=== PATIENT | male | born 1940 | race African-American/Black ===

== ENCOUNTER 2018-10-22 14:28 | Inpatient (IN) | payer OTHER ==
[~2018-10-22] VITALS: Ht 180.3 cm; Wt 115.2 kg
[2018-10-22] MEDS ORDERED: SODIUM CHLORIDE 0.9% 1,000 ML IV ONE (14:44)
[2018-10-22 15:23] LABS: BG BASE EXCESS -7.8 mmol/L (-2.0-2.0); BG CARBOXYHEMOGLOBIN 0.4 % (0.5-1.5); BG DEOXYHEMOGLOBIN 3.3 % (0.0-5.0); BG FRACTION INSPIRED OXYGEN 32; BG HCO3 ACT 17.6 mmol/L (22.0-26.0); BG METHEMOGLOBIN 0.2 % (0.0-1.5); BG OXYGEN SATURATION 96.7 % (92.0-98.5); BG OXYHEMOGLOBIN 96.1 % (94.0-97.0); BG PCO2 35.7 mmHg (35.0-45.0); BG PH 7.311 (7.350-7.450); BG PO2 98.4 mmHg (75.0-100.0); BG SAMPLE SITE RIGHT RADIAL; BG TOTAL HEMOGLOBIN 10.9 g/dL (12.0-18.0); BG VENT MODE NASAL CANNULA
[2018-10-22 15:35] LABS: BASOPHILS % 0.7 % (0.0-2.0); EOSINOPHILS % 0.8 % (0.0-5.0); HEMATOCRIT. 29.6 % (42.0-52.0); HEMOGLOBIN. 9.7 g/dL (14.0-18.0); LYMPHOCYTES % 16.3 % (20.0-50.0); MEAN CORPUSCULAR HEMOGLOBIN 33.6 pg (28.0-32.0); MEAN CORPUSCULAR VOLUME 102.9 fL (80.0-94.0); MEAN PLATELET VOLUME 11.8 fl (7.4-10.4); MONOCYTES % 5.7 % (2.0-8.0); NEUTROPHILS % 76.5 % (40.0-76.0); PLATELET 106 x1000/uL (130-400); RED BLOOD CELL COUNT 2.88 mill/uL (4.7-6.1); RED CELL DISTRIBUTION WIDTH 18.1 % (11.6-14.6)
[2018-10-22 15:38] LABS: CHLORIDE 112 mEq/L (98-107)
[2018-10-22 15:58] LABS: INR 12.2; PARTIAL THROMBOPLASTIN TIME 107.3 sec (23.4-31.0)
[2018-10-22] MEDS ORDERED: DOPAMINE 400MG/250ML PREMIX 250 ML IV ONE ×3 (16:00→19:45)
[2018-10-22 16:24] LABS: PROTHROMBIN TIME 117.1 sec (9.1-11.1)
[2018-10-22] MEDS ORDERED: SODIUM CHLORIDE 0.9% 1,000 ML IV SCH (18:31)
[2018-10-22] MEDS ORDERED: MAGNESIUM/ALUMINUM HYDROXIDE/SIMETHICONE 30ML UDC PO PRN (18:45)
[2018-10-22] MEDS ORDERED: ACETAMINOPHEN 325MG TABLET PO PRN (18:45)
[2018-10-22] MEDS ORDERED: DOCUSATE SODIUM 100MG CAPSULE PO PRN (18:45)
[2018-10-22] MEDS ORDERED: GUAIFENESIN 200MG/10ML SUGAR FREE UDC PO PRN (18:45)
[2018-10-22] MEDS ORDERED: IPRATROPIUM/ALBUTEROL 0.5-3(2.5)MG/3ML NEB INH PRN (18:45)
[2018-10-22] MEDS ORDERED: LORAZEPAM 2MG/ML CPJ IV PRN (18:45)
[2018-10-22] MEDS ORDERED: HYDROCODONE/ACETAMINOPHEN 5/325MG TABLET PO PRN (18:45)
[2018-10-22] MEDS ORDERED: ONDANSETRON HCL 4MG/2ML INJ IV PRN (18:45)
[2018-10-22] MEDS ORDERED: CLONIDINE 0.1MG TABLET PO PRN (18:45)
[2018-10-22] MEDS ORDERED: DIPHENHYDRAMINE 50MG/ML VIAL IV PRN (18:45)
[2018-10-22] MEDS ORDERED: LEVETIRACETAM 1000MG/100ML 100 ML IV ONE (19:45)
[2018-10-22] MEDS ORDERED: PHYTONADIONE 10 MG in DEXTROSE 5% WATER 50 ML IV SCH (20:45)
[2018-10-22] MEDS ORDERED: NA PHOS,M-B/NA PHOS,DI-BA ENEMA 118ML PR PRN (21:00)
[2018-10-22] MEDS ORDERED: HYDROMORPHONE HCL/PF 2MG/ML CPJ IV PRN (21:00)
[2018-10-22] MEDS ORDERED: DOPAMINE 800MG PREMIX (DOUBLE) 250 ML IV ONE (22:15)
[2018-10-22] MEDS: DOPAMINE 400MG/250ML PREMIX 250 ML IV PRN (22:15)
[2018-10-23] VITALS (68 sets, daily range): BP systolic 78–137; BP diastolic 39–106
[2018-10-23] MEDS: DOPAMINE 400MG/250ML PREMIX 250 ML IV PRN ×6 (01:20→20:39)
[2018-10-23 06:50] LABS: HEMATOCRIT. 33.2 % (42.0-52.0); HEMOGLOBIN. 10.9 g/dL (14.0-18.0); MEAN CORPUSCULAR HEMOGLOBIN 33.7 pg (28.0-32.0); MEAN CORPUSCULAR VOLUME 102.4 fL (80.0-94.0); MEAN PLATELET VOLUME 12.3 fl (7.4-10.4); PLATELET 123 x1000/uL (130-400); RED BLOOD CELL COUNT 3.24 mill/uL (4.7-6.1); RED CELL DISTRIBUTION WIDTH 18.4 % (11.6-14.6)
[2018-10-23 06:57] LABS: CHLORIDE 107 mEq/L (98-107)
[2018-10-23 07:06] LABS: LDL CHOLESTEROL 30 mg/dL (5-100)
[2018-10-23 07:07] LABS: HDL CHOLESTEROL 46 mg/dL (40-59); T4 FREE 1.06 ng/dL (0.76-1.46)
[2018-10-23 07:31] LABS: PLATELET ESTIMATE MARKEDLY DECREASED
[2018-10-23] MEDS: SODIUM CHLORIDE 0.9% 1,000 ML IV SCH ×2 (08:57→23:47)
[2018-10-23] MEDS ORDERED: PHYTONADIONE 10MG/ML AMP SUBCUT NR (09:45)
[2018-10-23 10:35] LABS: D-DIMER 0.36 mg/L FEU (<0.50)
[2018-10-23 10:39] LABS: PROTHROMBIN TIME > 100.0 sec (9.1-11.1)
[2018-10-23 10:41] LABS: INR > 10.0; PARTIAL THROMBOPLASTIN TIME 97.5 sec (23.4-31.0)
[2018-10-23] MEDS ORDERED: LIDOCAINE HCL 1% 20ML VIAL (Pyxis) INJ ONE (10:48)
[2018-10-23] MEDS ORDERED: PANTOPRAZOLE SODIUM 40 MG/VIAL IV NR (14:45)
[2018-10-23 15:15] LABS: HEMATOCRIT 31.6 % (42.0-52.0); HEMOGLOBIN 10.4 g/dL (14.0-18.0); MEAN CORPUSCULAR HEMOGLOBIN 33.9 pg (28.0-32.0); MEAN CORPUSCULAR VOLUME 102.6 fL (80.0-94.0); PLATELET 114 x1000/uL (130-400); RED BLOOD CELL COUNT 3.08 mill/uL (4.7-6.1); RED CELL DISTRIBUTION WIDTH 18.4 % (11.6-14.6)
[2018-10-23 15:43] LABS: CREATINE KINASE MB FRACTION 14.2 ng/mL (0.5-3.6)
[2018-10-23 15:44] LABS: PROTHROMBIN TIME 103.6 sec (9.1-11.1)
[2018-10-23 15:50] LABS: INR 10.8
[2018-10-23] MEDS ORDERED: MAGNESIUM 2 G PREMIX 50 ML IV NR (16:00)
[2018-10-23 19:34] LABS: HEMATOCRIT 33.2 % (42.0-52.0); HEMOGLOBIN 10.7 g/dL (14.0-18.0); MEAN CORPUSCULAR HEMOGLOBIN 33.1 pg (28.0-32.0); MEAN CORPUSCULAR VOLUME 102.6 fL (80.0-94.0); PLATELET 116 x1000/uL (130-400); RED BLOOD CELL COUNT 3.23 mill/uL (4.7-6.1); RED CELL DISTRIBUTION WIDTH 18.6 % (11.6-14.6)
[2018-10-23] MEDS ORDERED: DEXTROSE 50% WATER 50ML SYRINGE IV PRN (20:00)
[2018-10-23] MEDS ORDERED: METF-416 MT (20:05)
[2018-10-23] MEDS ORDERED: ALLO300T2 MT (20:09)
[2018-10-23] MEDS ORDERED: POTA10CA42 MT (20:47)
[2018-10-23] MEDS ORDERED: LISI2.5T47 MT (20:48)
[2018-10-23] MEDS: BLOOD SUGAR DIAGNOSTIC STRIP TEST SCH (20:50)
[2018-10-23] MEDS: INSULIN LISPRO 100 UNITS/ML SUBCUT SCH (20:51)
[2018-10-23] MEDS ORDERED: OMEG100017 MT (20:53)
[2018-10-23] MEDS ORDERED: ACYC200C MT (20:53)
[2018-10-23] MEDS ORDERED: FURO-152 MT (20:55)
[2018-10-23] MEDS ORDERED: CARV3.1242 MT (20:57)
[2018-10-23] MEDS ORDERED: DABI75CA3 MT (21:01)
[2018-10-23 23:19] LABS: CREATINE KINASE MB FRACTION 13.2 ng/mL (0.5-3.6)
[2018-10-24] VITALS (97 sets, daily range): BP systolic 72–215; BP diastolic 20–175
[2018-10-24] MEDS: IPRATROPIUM/ALBUTEROL 0.5-3(2.5)MG/3ML NEB HHN SCH ×4 (00:13→21:40)
[2018-10-24] MEDS: DOPAMINE 400MG/250ML PREMIX 250 ML IV PRN ×4 (00:29→13:01)
[2018-10-24 01:48] LABS: HEMATOCRIT 23.3 % (42.0-52.0); HEMOGLOBIN 7.5 g/dL (14.0-18.0); MEAN CORPUSCULAR HEMOGLOBIN 33.6 pg (28.0-32.0); MEAN CORPUSCULAR VOLUME 104.8 fL (80.0-94.0); PLATELET 76 x1000/uL (130-400); RED BLOOD CELL COUNT 2.23 mill/uL (4.7-6.1); RED CELL DISTRIBUTION WIDTH 18.6 % (11.6-14.6)
[2018-10-24 05:35] LABS: HEMATOCRIT. 31.5 % (42.0-52.0); HEMOGLOBIN. 10.4 g/dL (14.0-18.0); MEAN CORPUSCULAR HEMOGLOBIN 33.5 pg (28.0-32.0); MEAN CORPUSCULAR VOLUME 101.5 fL (80.0-94.0); PLATELET 103 x1000/uL (130-400); RED CELL DISTRIBUTION WIDTH 18.4 % (11.6-14.6)
[2018-10-24 06:00] LABS: CREATINE KINASE MB FRACTION 10.9 ng/mL (0.5-3.6)
[2018-10-24 06:25] LABS: PROTHROMBIN TIME 95.1 sec (9.1-11.1)
[2018-10-24 06:43] LABS: INR 9.9
[2018-10-24] MEDS: BLOOD SUGAR DIAGNOSTIC STRIP TEST SCH ×4 (06:57→21:12)
[2018-10-24] MEDS: INSULIN LISPRO 100 UNITS/ML SUBCUT SCH ×4 (06:58→21:00)
[2018-10-24] MEDS ORDERED: ALBUTEROL (0.083%) 2.5MG/3ML NEB HHN SCH (08:30)
[2018-10-24] MEDS ORDERED: SODIUM BICARBONATE 8.4% 1 MEQ/ML 50ML SYR IV SCH (08:30)
[2018-10-24] MEDS: PANTOPRAZOLE SODIUM 40 MG/VIAL IV SCH (08:56)
[2018-10-24] MEDS: FUROSEMIDE 40MG/4ML VIAL IVP SCH (08:56)
[2018-10-24] MEDS: SODIUM BICARBONATE 100 MEQ in DEXTROSE 5% WATER 1,000 ML IV SCH (09:49)
[2018-10-24] MEDS ORDERED: VANCOMYCIN 2,000 MG in DEXT 5% WATER 500 ML IV SCH (10:00)
[2018-10-24] MEDS: PIPERACILLIN/TAZ 2.25G PREMIX 50 ML IV SCH ×3 (10:00→21:14)
[2018-10-24] MEDS ORDERED: PHYTONADIONE 10MG/ML AMP IM NR (11:30)
[2018-10-24 12:35] LABS: MEAN CORPUSCULAR HEMOGLOBIN 33.6 pg (28.0-32.0); MEAN CORPUSCULAR VOLUME 102.9 fL (80.0-94.0); PLATELET 92 x1000/uL (130-400); RED BLOOD CELL COUNT 3.01 mill/uL (4.7-6.1); RED CELL DISTRIBUTION WIDTH 17.9 % (11.6-14.6)
[2018-10-24 12:40] LABS: HEMATOCRIT 30.9 % (42.0-52.0); HEMOGLOBIN 10.1 g/dL (14.0-18.0)
[2018-10-24 14:44] LABS: NUCLEATED RED BLOOD CELLS 2 /100 WBC; PLATELET ESTIMATE DECREASED
[2018-10-24] MEDS: NYSTATIN POWDER 15GM TOP SCH (18:58)
[2018-10-24] MEDS ORDERED: SODIUM POLYSTYRENE SULFONATE 15 G/60 ML BOT PO NR (19:00)
[2018-10-24 20:37] LABS: HEMATOCRIT 30.5 % (42.0-52.0); HEMOGLOBIN 10.2 g/dL (14.0-18.0); MEAN CORPUSCULAR HEMOGLOBIN 34.2 pg (28.0-32.0); MEAN CORPUSCULAR VOLUME 102.6 fL (80.0-94.0); PLATELET 83 x1000/uL (130-400); RED BLOOD CELL COUNT 2.97 mill/uL (4.7-6.1)
[2018-10-25] VITALS (86 sets, daily range): BP systolic 57–160; BP diastolic 23–98
[2018-10-25] MEDS: IPRATROPIUM/ALBUTEROL 0.5-3(2.5)MG/3ML NEB HHN SCH ×4 (02:23→20:56)
[2018-10-25 02:31] LABS: HEMATOCRIT 29.6 % (42.0-52.0); HEMOGLOBIN 9.7 g/dL (14.0-18.0); MEAN CORPUSCULAR HEMOGLOBIN 33.4 pg (28.0-32.0); MEAN CORPUSCULAR VOLUME 101.4 fL (80.0-94.0); PLATELET 80 x1000/uL (130-400); RED BLOOD CELL COUNT 2.92 mill/uL (4.7-6.1); RED CELL DISTRIBUTION WIDTH 18.1 % (11.6-14.6)
[2018-10-25] MEDS: DOPAMINE 400MG/250ML PREMIX 250 ML IV PRN (03:29)
[2018-10-25] MEDS: PIPERACILLIN/TAZ 2.25G PREMIX 50 ML IV SCH ×3 (05:31→22:00)
[2018-10-25 05:55] LABS: BASOPHILS % 0.4 % (0.0-2.0); EOSINOPHILS % 0.8 % (0.0-5.0); HEMATOCRIT. 30.5 % (42.0-52.0); HEMOGLOBIN. 10.1 g/dL (14.0-18.0); MEAN CORPUSCULAR HEMOGLOBIN 33.8 pg (28.0-32.0); MEAN CORPUSCULAR VOLUME 102.1 fL (80.0-94.0); MEAN PLATELET VOLUME 12.4 fl (7.4-10.4); MONOCYTES % 7.8 % (2.0-8.0); PLATELET 72 x1000/uL (130-400); RED BLOOD CELL COUNT 2.99 mill/uL (4.7-6.1); RED CELL DISTRIBUTION WIDTH 18.2 % (11.6-14.6)
[2018-10-25 06:10] LABS: PROTHROMBIN TIME 79.1 sec (9.1-11.1)
[2018-10-25] MEDS: INSULIN LISPRO 100 UNITS/ML SUBCUT SCH ×4 (06:46→21:00)
[2018-10-25] MEDS: BLOOD SUGAR DIAGNOSTIC STRIP TEST SCH ×4 (06:46→21:00)
[2018-10-25 07:27] LABS: INR 8.2
[2018-10-25] MEDS: SODIUM BICARBONATE 100 MEQ in DEXTROSE 5% WATER 1,000 ML IV SCH (09:27)
[2018-10-25] MEDS: NYSTATIN POWDER 15GM TOP SCH ×3 (09:46→17:00)
[2018-10-25] MEDS: PANTOPRAZOLE SODIUM 40 MG/VIAL IV SCH (09:46)
[2018-10-25] MEDS: FUROSEMIDE 40MG/4ML VIAL IVP SCH (09:46)
[2018-10-25] MEDS: PHENYLEPHRINE 40 MG in DEXT 5% WATER 246 ML IV PRN ×2 (11:45→19:05)
[2018-10-25] MEDS ORDERED: VANCOMYCIN 1500MG in DEXTROSE 5% WATER 250ML IV NR (15:00)
[2018-10-25 16:09] LABS: CLARITY URINE TURBID (CLEAR); COLOR URINE RED (YELLOW); KETONES URINE 2+ (NEGATIVE); LEUKOCYTE ESTERASE URINE 3+ (NEGATIVE); NITRITE URINE POSITIVE (NEGATIVE); OCCULT BLOOD URINE 3+ (NEGATIVE); PROTEIN URINE 3+ (NEGATIVE); SPECIFIC GRAVITY URINE 1.011 (1.005-1.030)
[2018-10-25 19:21] LABS: HEMATOCRIT 26.4 % (42.0-52.0); HEMOGLOBIN 8.7 g/dL (14.0-18.0); MEAN CORPUSCULAR HEMOGLOBIN 33.4 pg (28.0-32.0); MEAN CORPUSCULAR VOLUME 101.5 fL (80.0-94.0); PLATELET 75 x1000/uL (130-400); RED CELL DISTRIBUTION WIDTH 17.9 % (11.6-14.6)
[2018-10-26] VITALS (92 sets, daily range): BP systolic 83–140; BP diastolic 35–92
[2018-10-26] MEDS: IPRATROPIUM/ALBUTEROL 0.5-3(2.5)MG/3ML NEB HHN SCH ×4 (01:42→20:09)
[2018-10-26 02:23] LABS: HEMATOCRIT 26.9 % (42.0-52.0); HEMOGLOBIN 8.8 g/dL (14.0-18.0)
[2018-10-26] MEDS: PHENYLEPHRINE 40 MG in DEXT 5% WATER 246 ML IV PRN ×3 (03:28→18:03)
[2018-10-26] MEDS: PIPERACILLIN/TAZ 2.25G PREMIX 50 ML IV SCH ×3 (05:21→21:53)
[2018-10-26] MEDS: SODIUM BICARBONATE 100 MEQ in DEXTROSE 5% WATER 1,000 ML IV SCH (05:21)
[2018-10-26 05:34] LABS: BASOPHILS % 0.7 % (0.0-2.0); EOSINOPHILS % 2.2 % (0.0-5.0); HEMOGLOBIN. 8.9 g/dL (14.0-18.0); LYMPHOCYTES % 12.6 % (20.0-50.0); MEAN CORPUSCULAR HEMOGLOBIN 33.5 pg (28.0-32.0); MEAN CORPUSCULAR VOLUME 101.6 fL (80.0-94.0); MEAN PLATELET VOLUME 11.7 fl (7.4-10.4); MONOCYTES % 11.9 % (2.0-8.0); NEUTROPHILS % 72.6 % (40.0-76.0); PLATELET 72 x1000/uL (130-400); RED BLOOD CELL COUNT 2.66 mill/uL (4.7-6.1); RED CELL DISTRIBUTION WIDTH 17.9 % (11.6-14.6)
[2018-10-26] MEDS: INSULIN LISPRO 100 UNITS/ML SUBCUT SCH ×4 (05:42→21:00)
[2018-10-26] MEDS: BLOOD SUGAR DIAGNOSTIC STRIP TEST SCH ×4 (05:42→21:00)
[2018-10-26 05:58] LABS: PROTHROMBIN TIME 55.9 sec (9.1-11.1)
[2018-10-26 07:26] LABS: INR 5.7
[2018-10-26] MEDS: PANTOPRAZOLE SODIUM 40 MG/VIAL IV SCH (10:20)
[2018-10-26] MEDS: DEXTROSE 5% WATER 1,000 ML IV SCH (10:20)
[2018-10-26] MEDS: NYSTATIN POWDER 15GM TOP SCH ×3 (10:22→17:41)
[2018-10-27] VITALS (70 sets, daily range): BP systolic 80–130; BP diastolic 44–80
[2018-10-27] MEDS: IPRATROPIUM/ALBUTEROL 0.5-3(2.5)MG/3ML NEB HHN SCH ×4 (02:13→20:09)
[2018-10-27] MEDS: PIPERACILLIN/TAZ 2.25G PREMIX 50 ML IV SCH ×3 (04:00→15:13)
[2018-10-27 05:41] LABS: BASOPHILS % 0.9 % (0.0-2.0); EOSINOPHILS % 4.2 % (0.0-5.0); HEMATOCRIT. 26.3 % (42.0-52.0); HEMOGLOBIN. 8.8 g/dL (14.0-18.0); LYMPHOCYTES % 17.5 % (20.0-50.0); MEAN CORPUSCULAR HEMOGLOBIN 33.5 pg (28.0-32.0); MEAN CORPUSCULAR VOLUME 100.4 fL (80.0-94.0); MONOCYTES % 12.3 % (2.0-8.0); NEUTROPHILS % 65.1 % (40.0-76.0); RED BLOOD CELL COUNT 2.62 mill/uL (4.7-6.1); RED CELL DISTRIBUTION WIDTH 17.7 % (11.6-14.6)
[2018-10-27 05:52] LABS: PROTHROMBIN TIME 44.2 sec (9.1-11.1)
[2018-10-27] MEDS: BLOOD SUGAR DIAGNOSTIC STRIP TEST SCH ×3 (06:16→16:30)
[2018-10-27] MEDS: INSULIN LISPRO 100 UNITS/ML SUBCUT SCH ×3 (06:16→17:00)
[2018-10-27 07:11] LABS: INR 4.5
[2018-10-27] MEDS: PANTOPRAZOLE SODIUM 40 MG/VIAL IV SCH (08:32)
[2018-10-27] MEDS: NYSTATIN POWDER 15GM TOP SCH ×3 (08:33→18:00)
[2018-10-27] MEDS: DEXTROSE 5% WATER 1,000 ML IV SCH (08:33)
[2018-10-27 08:40] LABS: MEAN PLATELET VOLUME 11.9 fl (7.4-10.4)
[2018-10-27 08:44] LABS: PLATELET 70 x1000/uL (130-400)
[2018-10-27] MEDS ORDERED: VANCOMYCIN 1500MG in DEXTROSE 5% WATER 250ML IV NR (10:00)
== END 2018-10-27 21:10 | disposition short-term general hospital (02) | DRG 871 ==
LOC: ER 14:28 → EDBEDREQSVC 14:54 → EDBEDREQ 14:54 → EDBEDREQTM 14:54 → MICUNO 17:17 → EDBEDREQSVC 17:20 → EDBEDREQTM 17:20 → EDBEDREQ 17:20 → EDBEDREQSVC 23:49 → ENRESERV 10-23 03:26 → CANRESERV 10-23 03:29 → ENRESERV 10-23 03:29 → EDBEDREQSVC 10-23 03:43 → ENRESERV 10-23 07:29
PROVIDERS: ADMIT Internal Medicine; ATTEND Internal Medicine
PROC: 05H333Z Insertion of Infusion Device into Right Innominate Vein, Percutaneous Approach (ICD-10-PCS; principal; 2018-10-23)
PROC: B54MZZA Ultrasonography of Right Upper Extremity Veins, Guidance (ICD-10-PCS; 2018-10-23)
DX: A41.9 Sepsis, unspecified organism (principal); J96.00 Acute respiratory failure, unspecified whether with hypoxia or hypercapnia; G93.41 Metabolic encephalopathy; N17.0 Acute kidney failure with tubular necrosis; I50.23 Acute on chronic systolic (congestive) heart failure; J84.9 Interstitial pulmonary disease, unspecified; J90 Pleural effusion, not elsewhere classified; E87.2 Acidosis; D68.9 Coagulation defect, unspecified; G40.89 Other seizures; I42.9 Cardiomyopathy, unspecified; I67.82 Cerebral ischemia; K92.2 Gastrointestinal hemorrhage, unspecified; Z51.5 Encounter for palliative care; Z66 Do not resuscitate; T45.515A Adverse effect of anticoagulants, initial encounter; I48.91 Unspecified atrial fibrillation; E87.5 Hyperkalemia; G90.8 Other disorders of autonomic nervous system; D64.9 Anemia, unspecified; D69.6 Thrombocytopenia, unspecified; I25.10 Atherosclerotic heart disease of native coronary artery without angina pectoris; E05.90 Thyrotoxicosis, unspecified without thyrotoxic crisis or storm; F03.90 Unspecified dementia, unspecified severity, without behavioral disturbance, psychotic disturbance, mood disturbance, and anxiety; I25.2 Old myocardial infarction; I34.0 Nonrheumatic mitral (valve) insufficiency; I11.0 Hypertensive heart disease with heart failure; Z86.73 Personal history of transient ischemic attack (TIA), and cerebral infarction without residual deficits; Z79.01 Long term (current) use of anticoagulants; Z79.84 Long term (current) use of oral hypoglycemic drugs; Z79.899 Other long term (current) drug therapy; Y92.89 Other specified places as the place of occurrence of the external cause
CPT/HCPCS: 36415; 36569; 36600; 71045; 76937; 80048; 80061; 80202; 82375; 82550; 82553; 82805; 82962; 83036; 83605; 83735; 83880; 84132; 84134; 84145; 84439; 84443; 84484; 85007; 85014; 85018; 85027; 85362; 85379; 85384; 86850; 86900; 86927; 93005; 93306; 93970; 94640; 96365; 96366; 96368; 96375; 99291; A6261; C1725; C9113; J1265; J1940; J1953; J2370; J2405; J2543; J3370; J3430; J3475; J3490; J7030; J7040; J7050; J7060; J7070; J7620; P9017; A4315